=== PATIENT | female | born 1990 | race American Indian/Alaskan Native ===

== ENCOUNTER 2018-11-02 18:04 | Inpatient (IN) | payer MEDICAID ==
[2018-11-02 20:44] LABS: Basophils # (Auto) 0.1 K/mm3 (0.0-0.1); Basophils % (Auto) 0.7 % (0.0-1.8); Eosinophils # (Auto) 0.2 K/mm3 (0.0-0.4); Hematocrit 28.7 % (30.3-42.9); Hemoglobin 9.7 gm/dl (10.1-14.3); Lymphocytes # (Auto) 2.1 K/mm3 (1.2-5.4); Lymphocytes % (Auto) 26.7 % (13.4-35.0); Mean Corpuscular HGB Conc 34 % (30-34); Mean Corpuscular Volume 99 fl (79-97); Monocytes # (Auto) 0.4 K/mm3 (0.0-0.8); Monocytes % (Auto) 5.6 % (0.0-7.3); Platelet Count 158 K/mm3 (140-440); Red Blood Count 2.92 M/mm3 (3.65-5.03); Red Cell Distribution Width 13.1 % (13.2-15.2)
[2018-11-02] MEDS ORDERED: LACTATED RINGERS 1,000 ML IV ONE (20:45)
--- NOTE | 2018-11-02 20:53 | Ultrasound Report ---
US renal RT INDICATION / CLINICAL INFORMATION: kidney stone. COMPARISON: None available. FINDINGS: Left kidney and urinary bladder are unremarkable. Right kidney is hydronephrotic, with a large (1.6 c m) calculus in the renal pelvis near the ureteropelvic junction. Right renal cortex appears very slig htly thinned. IMPRESSION: 1. 1.6 cm calculus in the right renal pelvis near the ureteropelvic junction. Marked hydronephrosis a nd slight cortical thinning suggest long-standing obstruction. Signer Name: Joseph Ewing MD Signed: 11/02/2018 8:49 PM Workstation Name: [id number]
[2018-11-02 21:07] LABS: Bilirubin,Urine NEG (Negative); Blood,Urine LG (Negative); Color,Urine Amber (Yellow); Mucus,Urine 2+ /HPF; RBC,Urine > 182.0 /HPF (0.0-6.0)
[2018-11-02 21:12] LABS: Albumin 3.1 g/dL (3.9-5); BUN/Creatinine Ratio 14; Blood Urea Nitrogen 7 mg/dL (7-17); Calcium 8.7 mg/dL (8.4-10.2); Hemolysis Index 7
[2018-11-02 21:20] LABS: Alanine Aminotransferase < 5 units/L (7-56)
--- NOTE | 2018-11-02 22:18 | History and Physical Report ---
History of Present Illness Date of examination: 11/02/18 Chief complaint: Right flank pain History of present illness: Pt is a 28yo BF EDC 11/24/18; EGA 36 6/7 weeks presents to [facility] complaining of right flank pain. She had a pelvic u/s @ [facility] showing right kidney with a large hydronephrosis and a small stone in the pelvis. She received care at [facility] and had 3 previous C Sections. records are not available and GBS is unknown. Past History Past Medical History: no pertinent history Past Surgical History: section Family/Genetic History: none Social history: no significant social history, single - Obstetrical History Expected Date of Delivery: 11/24/18 Actual Gestation: 37 Week(s) 0 Day(s) : 5 Medications and Allergies Allergies Allergy/AdvReac Type Severity Reaction Status Date / Time No Known Allergies Allergy Verified 11/02/18 19:42 Home Medications Medication Instructions Recorded Confirmed Last Taken Type Vit Calc,Iron,Folic 1 each PO QDAY 09/23/16 11/02/18 09/22/16 19:00 History [ Vitamins] 1 Review of Systems All systems: negative - Vital Signs Vital signs: Vital Signs Pulse BP 83 112/69 11/02/18 18:24 11/02/18 18:24 Temp Pulse Resp BP Pulse Ox 97.9 F 75 14 97/59 99 11/02/18 21:54 11/02/18 21:58 11/02/18 21:54 11/02/18 21:58 11/02/18 21:54 - Physical Exam Breasts: Positive: deferred Cardiovascular: Regular rate Lungs: Positive: Clear to auscultation Abdomen: Positive: tenderness (Right CVAT) Genitourinary (Female): Positive: normal external genitalia Uterus: Positive: enlarged Extremities: Positive: normal - Obstetrical FHR: category 1 Uterine Contraction Monitor Mode: External Uterine Contraction Pattern: Absent Results Result Diagrams: 11/02/18 20:25 11/02/18 20:25 Abnormal lab results 11/02/18 11/02/18 11/02/18 Range/Units 20:25 20:25 Unknown RBC 2.92 L (3.65-5.03) M/mm3 Hgb 9.7 L (10.1-14.3) gm/dl Hct 28.7 L (30.3-42.9) % MCV 99 H (79-97) fl MCH 33 H (28-32) pg RDW 13.1 L (13.2-15.2) % Sodium 135 L (137-145) mmol/L Creatinine 0.5 L (0.7-1.2) mg/dL ALT < 5 L (7-56) units/L Albumin 3.1 L (3.9-5) g/dL Urine WBC (Auto) 61.0 H (0.0-6.0) /HPF U Epithel Cells (Auto) 20.0 H (0-13.0) /HPF All other labs normal. Ultrasound: report reviewed Assessment and Plan - Patient Problems (1) 36 weeks gestation of Onset Date: 11/02/18 Current Visit: Yes Status: Acute Plan to address problem: A: IUP @ 36 6/7 weeks Previous C Section x 3 Right hydronephrosis P: Admit to L&D for Observation Obtain Urology consultation (2) Previous section Onset Date: 11/02/18 Current Visit: Yes Status: Chronic (3) Hydronephrosis concurrent with and due to calculi of kidney and ureter Onset Date: 11/02/18 Current Visit: Yes Status: Acute
[2018-11-02] MEDS: PERCOCET 5/325 PO PRN (22:20)
[2018-11-02] MEDS ORDERED: COLACE PO PRN (22:21)
[2018-11-02] MEDS ORDERED: ZOFRAN IV PRN (22:21)
[2018-11-02] MEDS ORDERED: MORPHINE IV PRN (22:21)
[2018-11-02] MEDS ORDERED: TYLENOL PO PRN (22:21)
[2018-11-02] MEDS ORDERED: AMBIEN PO PRN (22:21)
--- NOTE | 2018-11-03 10:38 | Consultation ---
History of Present Illness - Reason for Consult Consult date: 11/03/18 right hydronephrosis with obstructing stone - History of Present Illness Patient with a history of right hydronephrosis with obstructing stone who is 36 and 6/7 weeks . Patient does not have a history of stone. She does complain of right flank pain. Past History Social history: no significant social history, single Medications and Allergies Allergies Allergy/AdvReac Type Severity Reaction Status Date / Time No Known Allergies Allergy Verified 11/02/18 19:42 Home Medications Medication Instructions Recorded Confirmed Last Taken Type Vit Calc,Iron,Folic 1 each PO QDAY 09/23/16 11/02/18 09/22/16 19:00 History [ Vitamins] 1 Active Meds: Active Medications Acetaminophen (Tylenol) 650 mg PO Q4H PRN PRN Reason: Pain MILD(1-3)/Fever >100.5/PRUITT Docusate Sodium (Colace) 100 mg PO Q12H PRN PRN Reason: Constipation Lactated Ringer's (Lactated Ringers) 1,000 mls @ 150 mls/hr IV DIRECT [facility] Morphine Sulfate (Morphine) 4 mg IV Q4H PRN PRN Reason: Pain , Severe (7-10) Multivitamins/Iron/Calcium ( Vitamin) 1 each PO QDAY [facility] Ondansetron HCl (Zofran) 4 mg IV Q6H PRN PRN Reason: Nausea And Vomiting Oxycodone/Acetaminophen (Percocet 5/325) 2 tab PO Q6H PRN PRN Reason: Pain, Moderate (4-6) Last Admin: 11/02/18 22:20 Dose: 2 tab Documented by: Zolpidem Tartrate (Ambien) 10 mg PO ONCE PRN PRN Reason: Sleep Review of Systems All systems: negative Exam - Constitutional Vitals: Temp Pulse Resp BP Pulse Ox 97.0 F L 70 17 111/76 99 11/03/18 10:36 11/03/18 10:35 11/03/18 10:36 11/03/18 10:35 11/02/18 21:54 General appearance: Present: no acute distress - EENT Eyes: Present: PERRL, EOM intact ENT: hearing intact - Neck Neck: Present: supple, normal ROM - Respiratory Respiratory effort: normal - Extremities Extremities: Full ROM - Abdominal General gastrointestinal: Present: deferred Female genitourinary: Present: deferred - Rectal Rectal Exam: deferred - Psychiatric Psychiatric: appropriate mood/affect, cooperative - Neurologic Neurologic: no focal deficits Results - Labs CBC & Chem 7: 11/02/18 20:25 11/02/18 20:25 Labs: Abnormal lab results 11/02/18 11/02/18 11/02/18 Range/Units 20:25 20:25 Unknown RBC 2.92 L (3.65-5.03) M/mm3 Hgb 9.7 L (10.1-14.3) gm/dl Hct 28.7 L (30.3-42.9) % MCV 99 H (79-97) fl MCH 33 H (28-32) pg RDW 13.1 L (13.2-15.2) % Sodium 135 L (137-145) mmol/L Creatinine 0.5 L (0.7-1.2) mg/dL ALT < 5 L (7-56) units/L Albumin 3.1 L (3.9-5) g/dL Urine WBC (Auto) 61.0 H (0.0-6.0) /HPF U Epithel Cells (Auto) 20.0 H (0-13.0) /HPF - Imaging and Cardiology Venous US: image reviewed (renal ultrasound) Assessment and Plan We'll plan on placing right nephrostomy tube with anesthesia given patient's status. This will both allow the kidney to decompress and provide access for laser lithotripsy after delivery.
[2018-11-03] MEDS: LACTATED RINGERS 1,000 ML IV SCH ×2 (10:46→22:47)
[2018-11-03] MEDS ORDERED: NACL 0.9% 500 ML 0 ML ONE (11:02)
[2018-11-03] MEDS ORDERED: XYLOCAINE 2% INFILTRATI ONE ×2 (11:02→13:42)
[2018-11-03] MEDS ORDERED: NACL 0.9% 500 ML IR ONE (11:02)
--- NOTE | 2018-11-03 11:23 | Anesthesia Consultation ---
Anesthesia Consult and Med Hx Date of service: 11/03/18 - Airway Anesthetic Teeth Evaluation: Poor ROM Head & Neck: Adequate Mental/Hyoid Distance: Adequate Mallampati Class: Class II Intubation Access Assessment: Possibly Difficult - Pulmonary Exam CTA: Yes - Cardiac Exam Cardiac Exam: RRR - Pre-Operative Health Status ASA Pre-Surgery Classification: ASA2 Proposed Anesthetic Plan: General - Pulmonary Hx Smoking: Yes Hx Asthma: Yes (last inhaler use 1 month ago) Hx Respiratory Symptoms: No - Cardiovascular System Hx Hypertension: No Hx Heart Attack/AMI: No Hx Cardia Arrhythmia: No - Central Nervous System Hx Seizures: No CVA: No - Gastrointestinal Hx Gastroesophageal Reflux Disease: No - Endocrine Hx Renal Disease: Yes (obstructing renal stone) Hx End Stage Renal Disease: No Hx Liver Disease: No Hx Insulin Dependent Diabetes: No Hx Non-Insulin Dependent Diabetes: No Hx Thyroid Disease: No - Hematic Hx Anemia: Yes - Other Systems Hx Obesity: No - Additional Comments Anesthesia Medical History Comments: No hx anesthetic complications. Will obtain FHTs pre- and post-procedure. Per discussion with OB, intraop FHT monitoring not required as length of precedure estimated to be 30mins or less.
--- NOTE | 2018-11-03 11:24 | Anesthesia Day of Surgery ---
Anesthesia Day of Surgery - Day of Surgery Patient Examined: Yes Patient H&P Reviewed: Yes Patient is NPO: Yes (last meal (eggs only) 729.)
[2018-11-03] MEDS ORDERED: DIPRIVAN 10 MG/ML IV ONE (12:06)
[2018-11-03] MEDS ORDERED: XYLOCAINE CARDIAC IV ONE (12:06)
[2018-11-03] MEDS ORDERED: ZEMURON IV ONE (12:06)
[2018-11-03] MEDS ORDERED: QUELICIN ONE (12:06)
[2018-11-03] MEDS ORDERED: SUBLIMAZE ONE (12:08)
[2018-11-03] MEDS ORDERED: NEO SYNEPHRINE ONE (12:14)
[2018-11-03] MEDS ORDERED: DIPRIVAN 10 MG/ML 1,000 MG/100 ML BOTTLE IV ONE (12:24)
[2018-11-03] MEDS ORDERED: HEPARIN/NS 5000 UNIT/500ML(CATH LAB) 500 ML IR ONE (13:42)
[2018-11-03] MEDS ORDERED: NACL 0.9% 1000 ML 1,000 ML ONE (14:22)
[2018-11-03] MEDS ORDERED: BRIDION IV ONE (14:58)
--- NOTE | 2018-11-03 14:59 | Operative Report ---
Operative Report Operative Report: Exam: Ultrasound and fluoroscopic guided placement of nephrostomy tube Clinical indication: Patient with a history of right hydronephrosis secondary to obstructing stone. Patient is 36 and 6/7 weeks . Date: 11/03/2018 Procedure: Following an excellent mention of the risks, benefits and alternative s; written informed consent was obtained. The patient's ultrasound was reviewed prior to the procedure. The patient was brought to the antibiotics suite and placed in oblique position. Following the induction of anesthesia with anesthesia services, the patient's back and flank were prepped and draped in the usual sterile fashion. 1% lidocaine was used for anesthesia. Under ultrasound guidance, a posterior calyx was cannulated using a 15 cm 21- gauge needle. A 0.018 guidewire was advanced centrally. The needle was removed and the inner portion of the transition dilator placed over the guidewire. Contrast was injected which demonstrated opacification of the renal pelvis and extrarenal pelvis with transit of contrast in the proximal ureter. A 0.014 guidewire was then advanced through the inner portion of the transition dilator to the level of the bladder. The transition dilator was removed and a vertebral catheter advanced over the guidewire however, would not track into the kidney. The vertebral catheter was removed and the entire transition dilator placed over the guidewire and advanced centrally. The guidewire and trocar were removed. A 0.035 guidewire was then advanced through the transition dilator into the tortuous proximal ureter the level of the bladder. Transition dilator was removed. The vertebral catheter was then advanced into the bladder and contrast injected. There is poor visualization secondary to let shielding. The vertebral catheter was withdrawn proximally and imaging obtained of the distal mid and proximal ureters which demonstrated appropriate positioning within the urinary collecting system. The 0.035 guidewire was then advanced again toward the vertebral catheter into the proximal ureter. The vertebral catheter removed. Following serial dilation over the guidewire under fluoroscopy, an 8 [place] pigtail catheter was advanced over the guidewire under fluoroscopy centrally. The catheter was positioned to position the pigtail within the central aspect of the renal pelvis. There is prompt return of serosanguineous fluid. Contrast was injected to document appropriate positioning. The catheter was securely fastened at the skin surface using 2-0 Ethilon suture in a StayFix device placed. The catheter was then placed to dependent drainage. Sterile dressings were then applied. Patient tolerated the procedure well. There were no immediate post procedure competitions. Sedation was provided by anesthesia services. Continuous cardiopulmonary monitoring was utilized. Impression: Ultrasound and fluoroscopic guided placement of right 8 [place] Nephrostomy tube.
[2018-11-03] MEDS ORDERED: KETAMINE 50 MG/ML-WATER SYRING ONE (15:08)
[2018-11-03] MEDS ORDERED: PROVENTIL IH ONE (15:14)
[2018-11-03] MEDS ORDERED: REGLAN ONE (15:23)
--- NOTE | 2018-11-03 15:59 | XRay Report ---
CHEST 1 VIEW INDICATION: respitory difficulty. COMPARISON: None FINDINGS: Support devices: None. Heart: Within normal limits. Lungs/Pleura: No acute air space or interstitial disease. Additional findings: None. IMPRESSION: No acute findings. Signer Name: Mohamud Peters Jr, MD Signed: 11/03/2018 3:54 PM Workstation Name: [id number]
--- NOTE | 2018-11-03 16:02 | Event Note ---
Date: 11/03/18 Following the cessation of anesthesia, the patient sat upright and complained of shortness of breath. Her lung sounds are clear bilaterally. She satted between 96 and 100% on room air. A stat postprocedure chest x-ray was ordered an upright position and demonstrates that the lungs are clear and well-expanded with no pleural fluid and no evidence of pneumothorax. The nephrostomy tube is well below the diaphragm. The patient has a reported history of substance abuse and this may simply be a reaction to anesthesia. In PACU, the patient calmed down and was breathing comfortably on room air.
--- NOTE | 2018-11-03 16:39 | Post Anesthesia Evaluation ---
- Post Anesthesia Evaluation Patient Participated: Yes Airway Patent: Yes Stable Respiratory Function: Yes Nausea/Vomiting: Yes (resolved with IV antiemetics) Temp > 96.8F: Yes Pain Manageable: Yes Adequeate Hydration: Yes Anesthesia Complications: No Other Comments: Immediately post-extubation, patient complained of difficulty breathing. Lungs clear, SpO2 >96% on room air, no evidence of residual muscle relaxant. Stat CXR in PACU was normal. Patient was extremely anxious and intermittently combative despite reassurance. Patient was given albuterol neb, antiemetics, and low dose ketamine IV. VS remained stable. At time fo transport to L&D, patient was resting calmly, normal WOB on RA, without signs of nausea. Post-procedure FHTs 140s.
[2018-11-03] MEDS: PERCOCET 5/325 PO PRN (17:59)
[2018-11-03] MEDS: PRENATAL VITAMIN PO SCH (18:00)
--- NOTE | 2018-11-03 18:02 | Consultation ---
History of Present Illness - Reason for Consult Consult date: 11/03/18 - History of Present Illness new to our service Pt is a 28yo BF EDC 11/24/18; EGA 36 6/7 weeks presents to [facility] complaining of right flank pain. She had a pelvic u/s @ [facility] showing right kidney with a large hydronephrosis and a small stone in the pelvis. She received care at [facility] and had 3 previous C Sections. SERGEI---16MM RT KIDNEY STONE WITH HYDRONEPHROSIS S/P---RT PERC ONLY (DR. WEEKS - ---TODAY) RESTING PERC TUBE--BLOODY URINE A/P STABLE HOME WITH PERC WHEN STABLE PT TO F/U 2-3 WKS AFTER DELIVERY FOR CTAP & STONE TREATMENT PLANNING Past History Social history: no significant social history, single Medications and Allergies Allergies Allergy/AdvReac Type Severity Reaction Status Date / Time No Known Allergies Allergy Verified 11/02/18 19:42 Home Medications Medication Instructions Recorded Confirmed Last Taken Type Vit Calc,Iron,Folic 1 each PO QDAY 09/23/16 11/02/18 09/22/16 19:00 History [ Vitamins] 1 Active Meds: Active Medications Acetaminophen (Tylenol) 650 mg PO Q4H PRN PRN Reason: Pain MILD(1-3)/Fever >100.5/PRUITT Docusate Sodium (Colace) 100 mg PO Q12H PRN PRN Reason: Constipation Lactated Ringer's (Lactated Ringers) 1,000 mls @ 150 mls/hr IV DIRECT [facility] Last Admin: 11/03/18 10:46 Dose: 150 mls/hr Documented by: Morphine Sulfate (Morphine) 4 mg IV Q4H PRN PRN Reason: Pain , Severe (7-10) Multivitamins/Iron/Calcium ( Vitamin) 1 each PO QDAY [facility] Last Admin: 11/03/18 18:00 Dose: Not Given Documented by: Ondansetron HCl (Zofran) 4 mg IV Q6H PRN PRN Reason: Nausea And Vomiting Oxycodone/Acetaminophen (Percocet 5/325) 2 tab PO Q6H PRN PRN Reason: Pain, Moderate (4-6) Last Admin: 11/03/18 17:59 Dose: 2 tab Documented by: Zolpidem Tartrate (Ambien) 10 mg PO ONCE PRN PRN Reason: Sleep Exam - Constitutional Vitals: Temp Pulse Resp BP Pulse Ox 97.6 F 102 H 16 112/65 100 11/03/18 16:55 11/03/18 17:30 11/03/18 16:55 11/03/18 16:55 11/03/18 17:30 Results - Labs CBC & Chem 7: 11/02/18 20:25 11/02/18 20:25 Labs: Abnormal lab results 11/02/18 11/02/18 11/02/18 Range/Units 20:25 20:25 Unknown RBC 2.92 L (3.65-5.03) M/mm3 Hgb 9.7 L (10.1-14.3) gm/dl Hct 28.7 L (30.3-42.9) % MCV 99 H (79-97) fl MCH 33 H (28-32) pg RDW 13.1 L (13.2-15.2) % Sodium 135 L (137-145) mmol/L Creatinine 0.5 L (0.7-1.2) mg/dL ALT < 5 L (7-56) units/L Albumin 3.1 L (3.9-5) g/dL Urine WBC (Auto) 61.0 H (0.0-6.0) /HPF U Epithel Cells (Auto) 20.0 H (0-13.0) /HPF
[2018-11-04] MEDS: PERCOCET 5/325 PO PRN ×2 (02:36→07:57)
[2018-11-04] MEDS: LACTATED RINGERS 1,000 ML IV SCH (07:58)
--- NOTE | 2018-11-04 10:13 | Progress Note ---
Assessment and Plan - Patient Problems (1) 36 weeks gestation of Onset Date: 11/02/18 Current Visit: Yes Status: Acute Plan to address problem: A: IUP @ 37 0/7 weeks Previous C Section x 3 Right hydronephrosis - resolved with nephrostomy tube P: May go home today. (2) Previous section Onset Date: 11/02/18 Current Visit: Yes Status: Chronic (3) Hydronephrosis concurrent with and due to calculi of kidney and ureter Onset Date: 11/02/18 Current Visit: Yes Status: Acute Subjective - Subjective Date of service: 11/04/18 Principal diagnosis: IUP @ 37 0/7 weeks; Right [place] with stone; Previous C Section x 3 Interval history: Pt is a 28yo BF EDC 11/24/18; EGA 37 0/7 weeks presented to [facility] complaining of right flank pain. She had a pelvic u/s @ [facility] showing right kidney with a large hydronephrosis and a small stone in the pelvis. She received care at [facility] and had 3 previous C Sections. She underwent a Right nephrostomy and is doing well. She denies contractions, ROM or bleeding, and wants to go home. Patient reports: movement normal, no new complaints, no loss of fluid, no vaginal bleeding, no contractions Objective - Vital Signs Vital Signs: Vital Signs - 12hr 11/03/18 11/04/18 11/04/18 22:56 02:36 02:46 Temperature 98.0 F Pulse Rate 72 70 Respiratory 16 16 Rate Blood Pressure 110/70 113/74 Blood Pressure 113/74 [Left] O2 Sat by Pulse Oximetry 11/04/18 11/04/18 11/04/18 07:34 07:37 07:42 Temperature 97.8 F Pulse Rate 71 59 L Respiratory 20 Rate Blood Pressure 119/71 Blood Pressure [Left] O2 Sat by Pulse 100 100 Oximetry 11/04/18 11/04/18 11/04/18 07:47 07:52 07:54 Temperature Pulse Rate 62 65 63 Respiratory Rate Blood Pressure Blood Pressure [Left] O2 Sat by Pulse 100 100 90 Oximetry 11/04/18 11/04/18 11/04/18 07:57 08:02 08:07 Temperature Pulse Rate 63 65 68 Respiratory Rate Blood Pressure Blood Pressure [Left] O2 Sat by Pulse 98 100 100 Oximetry 11/04/18 11/04/18 08:12 08:17 Temperature Pulse Rate 77 94 H Respiratory Rate Blood Pressure Blood Pressure [Left] O2 Sat by Pulse 99 98 Oximetry - Exam Abdomen: Present: normal appearance, soft Uterus: Present: normal FHR: category 1 Uterine Contraction Monitor Mode: External Uterine Contraction Pattern: Absent - Labs Labs: Abnormal Labs 11/02/18 11/02/18 11/02/18 20:25 20:25 Unknown RBC 2.92 L Hgb 9.7 L Hct 28.7 L MCV 99 H MCH 33 H RDW 13.1 L Sodium 135 L Creatinine 0.5 L ALT < 5 L Albumin 3.1 L Urine WBC (Auto) 61.0 H U Epithel Cells (Auto) 20.0 H
[2018-11-04 10:21] LABS: Basophils % (Auto) 0.2 % (0.0-1.8); Eosinophils % (Auto) 0.3 % (0.0-4.3); Hematocrit 27.2 % (30.3-42.9); Hemoglobin 9.4 gm/dl (10.1-14.3); Lymphocytes # (Auto) 1.6 K/mm3 (1.2-5.4); Lymphocytes % (Auto) 21.3 % (13.4-35.0); Mean Corpuscular HGB Conc 34 % (30-34); Mean Corpuscular Volume 98 fl (79-97); Monocytes # (Auto) 0.6 K/mm3 (0.0-0.8); Monocytes % (Auto) 7.3 % (0.0-7.3); Platelet Count 140 K/mm3 (140-440); Red Blood Count 2.78 M/mm3 (3.65-5.03); Red Cell Distribution Width 13.3 % (13.2-15.2)
[2018-11-04] MEDS: PRENATAL VITAMIN PO SCH (10:45)
[2018-11-04 10:50] VITALS: BP 117/69
[2018-11-04 10:59] LABS: BUN/Creatinine Ratio 12; Blood Urea Nitrogen 6 mg/dL (7-17); Calcium 8.5 mg/dL (8.4-10.2); Hemolysis Index 0
--- NOTE | 2018-11-04 11:09 | Discharge Summary ---
Providers - Providers Date of Admission: 11/03/18 00:31 Date of discharge: 11/04/18 Attending physician: AYESHA RASHEED 11/02/18 22:21 Consult to Physician [CONS] Routine Comment: Consulting Provider: CECI FLOREZ Physician Instructions: Reason For Exam: Right hydronephrosis Primary care physician: AYESHA RASHEED Hospitalization Reason for admission: IUP - (IUP @ 36 6/7 weeks; Previous C Section x 3; Right hydronephrosis with kidney stone) Laceration: none Incision: normal Other procedures: none complications: none Discharge diagnosis: other (IUP @ 37 0/7 weeks; Previous C Section x 3; Right hy dronephrosis with kidney stone) Pertinent studies: Ultrasound and fluoroscopic guided placement of nephrostomy tube Hospital course: Pt is a 28yo BF EDC 11/24/18; EGA 37 0/7 weeks presented to [facility] complaining of right flank pain. She had a pelvic u/s @ [facility] showing right kidney with a large hydronephrosis and a small stone in the pelvis. She received care at [facility] and had 3 previous C Sections. She underwent a Right nephrostomy and postoperative course was unremarkable. By POD #1 she was doing well without complaints, and therefore was discharged to home in stable condition. Condition at discharge: Good Disposition: DC-01 TO HOME OR SELFCARE - Discharge Diagnoses (1) 36 weeks gestation of Status: Acute (2) Previous section Status: Chronic (3) Hydronephrosis concurrent with and due to calculi of kidney and ureter Status: Acute Plan - Discharge Medications Prescriptions: oxyCODONE /ACETAMINOPHEN [Percocet 5/325 mg] 1 tab PO Q6H PRN #30 tablet PRN Reason: Pain, Moderate (4-6) - Provider Discharge Summary Activity: routine, no sex for 6 weeks, no heavy lifting 4 weeks, no strenuous exercise Diet: routine Instructions: routine Additional instructions: [] Smoking cessation referral if applicable(refer to patient education folder for contact #) [] Refer to [employer] [facility] Booklet Call your doctor immediately for: * Fever > 100.5 * Heavy vaginal bleeding ( >1 pad per hour) * Severe persistent headache * Shortness of breath * Reddened, hot, painful area to leg or breast * Drainage or odor from incision. * Keep incision clean and dry at all times and follow doctor's instructions regarding bathing/showering - Follow up plan Follow up: AYESHA RASHEED MD [Primary Care Provider] - 3 Days
--- NOTE | 2018-11-04 12:23 | Progress Note ---
Assessment and Plan 28-year-old female with left-sided hydronephrosis and renal calculi status post nephrostomy tube placement. Urine clearing. Follow-up with urology. Patient was told to contact us if she needs to for further assistance. She was told she should have the tube changed every 10 weeks or she will at risk for future calculi. Subjective Date of service: 11/04/18 Principal diagnosis: IUP @ 37 0/7 weeks; Right [place] with stone; Previous C Section x 3 Interval history: Right flank pain improved. [place] urine. Clearing. No significant discomfort. Objective - Constitutional Vitals: Vital Signs - 12hr 11/04/18 11/04/18 11/04/18 02:36 02:46 07:34 Temperature 98.0 F 97.8 F Pulse Rate 70 Respiratory 16 16 20 Rate Blood Pressure 113/74 Blood Pressure 113/74 [Left] O2 Sat by Pulse Oximetry 11/04/18 11/04/18 11/04/18 07:37 07:42 07:47 Temperature Pulse Rate 71 59 L 62 Respiratory Rate Blood Pressure 119/71 Blood Pressure [Left] O2 Sat by Pulse 100 100 100 Oximetry 11/04/18 11/04/18 11/04/18 07:52 07:54 07:57 Temperature Pulse Rate 65 63 63 Respiratory Rate Blood Pressure Blood Pressure [Left] O2 Sat by Pulse 100 90 98 Oximetry 11/04/18 11/04/18 11/04/18 08:02 08:07 08:12 Temperature Pulse Rate 65 68 77 Respiratory Rate Blood Pressure Blood Pressure [Left] O2 Sat by Pulse 100 100 99 Oximetry 11/04/18 11/04/18 11/04/18 08:17 10:47 10:49 Temperature 98.0 F Pulse Rate 94 H 79 Respiratory 16 Rate Blood Pressure 117/69 Blood Pressure [Left] O2 Sat by Pulse 98 Oximetry General appearance: Present: no acute distress - EENT Eyes: EOM intact ENT: hearing intact - Respiratory Respiratory effort: normal - Gastrointestinal General gastrointestinal: Present: soft, non-tender, other (no costovertebral tenderness) - Psychiatric Psychiatric: appropriate mood/affect, cooperative - Labs CBC & Chem 7: 11/04/18 09:41 11/04/18 09:41 Labs: Abnormal lab results 11/04/18 11/04/18 Range/Units 09:41 09:41 RBC 2.78 L (3.65-5.03) M/mm3 Hgb 9.4 L (10.1-14.3) gm/dl Hct 27.2 L (30.3-42.9) % MCV 98 H (79-97) fl MCH 34 H (28-32) pg Seg Neutrophils % 70.9 H (40.0-70.0) % Sodium 135 L (137-145) mmol/L BUN 6 L (7-17) mg/dL Creatinine 0.5 L (0.7-1.2) mg/dL Glucose 104 H (65-100) mg/dL Medications & Allergies - Medications Allergies/Adverse Reactions: Allergies No Known Allergies Allergy (Verified 11/02/18 19:42) Home Medications: Home Medications Medication Instructions Recorded Confirmed Last Taken Type Vit Calc,Iron,Folic 1 each PO QDAY 09/23/16 11/02/18 09/22/16 19:00 History [ Vitamins] 1 oxyCODONE /ACETAMINOPHEN [Percocet 1 tab PO Q6H PRN #30 tablet 11/04/18 Unknown Rx 5/325 mg]
== END 2018-11-04 12:00 | disposition home or self-care (01) | DRG 781 ==
LOC: TRG 18:04 → LD 11-03 00:31
PROVIDERS: ADMIT Obstetrics & Gynecology; ATTEND Obstetrics & Gynecology
PROC: 0T9330Z Drainage of Right Kidney Pelvis with Drainage Device, Percutaneous Approach (ICD-10-PCS; principal; 2018-11-03)
PROC: BT111ZZ Fluoroscopy of Right Kidney using Low Osmolar Contrast (ICD-10-PCS; 2018-11-03)
DX: O99.89 Other specified diseases and conditions complicating pregnancy, childbirth and the puerperium (principal); N13.2 Hydronephrosis with renal and ureteral calculous obstruction; Z3A.36 36 weeks gestation of pregnancy; O99.333 Smoking (tobacco) complicating pregnancy, third trimester; F17.200 Nicotine dependence, unspecified, uncomplicated; O99.513 Diseases of the respiratory system complicating pregnancy, third trimester; J45.909 Unspecified asthma, uncomplicated
CPT/HCPCS: 36415; 50432; 71045; 76770; 76775; 76937; 80048; 80053; 81001; 82962; 85025; 87086; G0378; C1729; C1769; J0330; J1644; J2001; J2270; J2370; J2405; J2704; J2765; J3010; J7030; J7040; J7120; Q9967

== ENCOUNTER 2019-03-08 09:54 | Day surgery (SDC) | payer MEDICARE ==
[2019-03-08 10:43] LABS: Hematocrit 31.3 % (30.3-42.9); Hemoglobin 10.7 gm/dl (10.1-14.3); Mean Corpuscular HGB Conc 34 % (30-34); Mean Corpuscular Volume 93 fl (79-97); Platelet Count 271 K/mm3 (140-440); Red Blood Count 3.35 M/mm3 (3.65-5.03); Red Cell Distribution Width 14.5 % (13.2-15.2)
[2019-03-08] MEDS: SODIUM CHLORIDE 0.9% 500 ML 500 ML IV SCH ×2 (10:51→11:58)
[2019-03-08 10:52] LABS: INR 0.96 (0.87-1.13)
[2019-03-08 10:56] LABS: BUN/Creatinine Ratio 13; Blood Urea Nitrogen 9 mg/dL (7-17); Calcium 9.1 mg/dL (8.4-10.2); Hemolysis Index 9
[2019-03-08] MEDS ORDERED: SODIUM CHLORIDE IRRI 500 ML 500 ML IR ONE (10:56)
[2019-03-08] MEDS ORDERED: ceFAZolin/Water 2 GM/20 ML 0 GM/0 ML SYRINGE IV ONE (10:57)
[2019-03-08] MEDS ORDERED: SODIUM CHLORIDE 0.9% 250ML 0 ML ONE (10:57)
--- NOTE | 2019-03-08 11:16 | Short Stay Summary ---
Short Stay Documentation Date of service: 03/08/19 - History Principal diagnosis: right hydronephrosis resolved, nephrostomy tube no longer needed Past Medical History: other (right hydronephrosis secondary to and right nephrolithiasis) Past Surgical History: Other (right nephrostomy tube placement) Social history: no significant social history - Allergies and Medications Current Medications: Allergies No Known Allergies Allergy (Verified 11/02/18 19:42) Home Medications Medication Instructions Recorded Confirmed Last Taken Type No Known Home Medications [No 03/08/19 03/08/19 Unknown History Reported Home Medications] Active Medications Sodium Chloride (Nacl 0.9% 500 Ml) 500 mls @ 50 mls/hr IV DIRECT FELIPE Last Admin: 03/08/19 10:51 Dose: 50 mls/hr Documented by: - Physical exam General appearance: no acute distress Integumentary: no rash, no growths HEENT: Atraumatic Lungs: Normal air movement Breasts: deferred Heart: Regular rate Gastrointestinal: normal Female Genitourinary: deferred Rectal Exam: deferred Extremities: no ischemia Neurological: Normal gait, Normal speech - Brief post op/procedure progress note Date of procedure: 03/08/19 Pre-op diagnosis: right nephrolithiasis Post-op diagnosis: same Procedure: right nephrostogram, neph tube removal Anesthesia: local Surgeon: PABLO WEEKS Estimated blood loss: minimal Pathology: none Condition: stable - Disposition Condition at discharge: Good Disposition: DC-01 TO HOME OR SELFCARE Short Stay Discharge Plan Activity: advance as tolerated Weight Bearing Status: Weight Bear as Tolerated Diet: regular Wound: keep clean and dry, per your surgeon's advice Follow up with: PRIMARY CAREMD [Primary Care Provider] - 7 Days
[2019-03-08] MEDS: fentaNYL 100 MCG/2 ML INJ ONE ×2 (11:57→11:59)
[2019-03-08] MEDS: LIDOCAINE 1%/EPINEPHRINE 1:100,000 VIAL (20 ML) INFILTRATI ONE ×2 (11:58→12:03)
[2019-03-08] MEDS: MIDAZOLAM 2 MG/2 ML INJ ONE ×2 (11:58→11:59)
--- NOTE | 2019-03-08 12:12 | Operative Report ---
Operative Report Operative Report: Exam: Nephrostogram through indwelling nephrostomy tube, fluoroscopic guided removal of nephrostomy tube Clinical indication: Patient with a history of right nephrolithiasis and hydronephrosis now resolved, nephrostomy tube no longer needed Date: 03/08/2019 Procedure: Following an explanation of the risks, benefits and alternatives; written informed consent was obtained. The patient was brought into Suite and placed in prone position on the examination table. Initial fluoroscopic evaluation of the patient's right back demonstrated proper positioning of the patient's previously placed nephrostomy tube. Patient was prepped and draped in the usual sterile fashion. 1% lidocaine was used for anesthesia at the catheter exit site. Contrast was injected through the indwelling catheter which demonstrates prompt mastication of the renal pelvis. There is decompression of the renal pelvis and renal calyces. The catheter was cut to release the pigtail and under fluoroscopy, a 0.035 guidewire advanced through the catheter to straighten it out. The catheter was then removed intact. A sterile dressing was applied. The patient tolerated the procedure well. There were no immediate post procedure complications. A minimal amount of fentanyl was utilized for pain control. Continuous cardiopulmonary monitoring was utilized. Impression: 1) Nephrostogram through indwelling nephrostomy tube demonstrating decompression of the kidney with nonvisualization of previously identified kidney stone. 2) Fluoroscopic guided removal of nephrostomy tube
[2019-03-08] MEDS ORDERED: oxyCODONE /ACETAMINOPHEN 5-325MG TAB PO ONE (12:45)
[2019-03-08 13:29] VITALS: BP 116/72
== END 2019-03-08 13:56 | disposition home or self-care (01) ==
LOC: CATHLABREC 09:54
PROVIDERS: ATTEND Radiology Diagnostic Radiology
DX: N13.2 Hydronephrosis with renal and ureteral calculous obstruction (principal); J45.909 Unspecified asthma, uncomplicated; K21.9 Gastro-esophageal reflux disease without esophagitis; Z98.890 Other specified postprocedural states; F17.210 Nicotine dependence, cigarettes, uncomplicated; Z79.899 Other long term (current) drug therapy; Z98.891 History of uterine scar from previous surgery; Z72.89 Other problems related to lifestyle; Z83.3 Family history of diabetes mellitus; Z80.1 Family history of malignant neoplasm of trachea, bronchus and lung; Z82.5 Family history of asthma and other chronic lower respiratory diseases; Z86.2 Personal history of diseases of the blood and blood-forming organs and certain disorders involving the immune mechanism; Z82.49 Family history of ischemic heart disease and other diseases of the circulatory system
CPT/HCPCS: 36415; 50389; 80048; 85027; 85610; 85730; C1769; J2250; J3010; J7040; J0690; J7050; Q9967

== ENCOUNTER 2020-04-28 23:56 | Emergency (ER) | payer MEDICAID ==
[2020-04-29] MEDS ORDERED: IBUPROFEN 800 MG TAB PO ONE (00:13)
--- NOTE | 2020-04-29 00:16 | Emergency Department Report ---
ED General Adult HPI - General Chief complaint: Extremity Injury, Lower Stated complaint: LEFT SHOULDER/ARM/PELVIC PAIN Time Seen by Provider: 04/29/20 00:06 Source: patient Mode of arrival: Ambulatory Limitations: No Limitations - History of Present Illness Initial comments: 30 yr old female with pmhx asthma, GERD, and Kidney stone presents to ED with c /o pelvic pain and right shoulder pain. Patient states she accidentally fell 03/05/2020. She states she was walking when she stepped in a hole and fell on her buttocks. She states she was evaluated at the time of the fall at [facility] and was dx with pelvic fracture. She states she was given medication for pain in ER but states she was not given any prescriptions. She states she has an appointment with Dr Leti West at [facility] for next week but she states she is in a lot of pain. She states pain is worse when she walks, bends and moves her legs in certain positions. She states she has not been taking any otc meds for pain. She denies any new injuries since her initial accident. Patient also c/o right shoulder pain. She states she has had pain in right shoulder for a "long time" and she states every morning she feels like her shoulder is dislocated. She states in past month she feels like the dislocation is more frequent. She states she has never seen sales operations lead for her shoulder. She states it typically "relocates on it own. She has never had to come to ER to have it relocated. Complaint: Right Shoulder pain; Pelvic pain -: week(s) - Related Data Previous Rx's Medication Instructions Recorded Last Taken Type oxyCODONE /ACETAMINOPHEN [Percocet 1 tab PO Q6HR PRN #25 tablet 03/08/19 Unknown Rx 5/325] Ibuprofen [Motrin] 800 mg PO Q8HR PRN #30 tablet 04/29/20 Unknown Rx Allergies Allergy/AdvReac Type Severity Reaction Status Date / Time No Known Allergies Allergy Verified 11/02/18 19:42 ED Review of Systems ROS: Stated complaint: LEFT SHOULDER/ARM/PELVIC PAIN Other details as noted in HPI Comment: All other systems reviewed and negative Constitutional: no symptoms reported Eyes: denies: eye pain, eye discharge, vision change ENT: denies: ear pain, throat pain Respiratory: denies: cough, shortness of breath, wheezing Cardiovascular: denies: chest pain, palpitations Gastrointestinal: denies: abdominal pain, nausea, diarrhea Genitourinary: as per HPI Musculoskeletal: arthralgia, other (right shoulder pain; Pelvic pain ). denies: back pain, joint swelling Skin: denies: rash, lesions Neurological: denies: headache, weakness, paresthesias Psychiatric: denies: anxiety, depression Hematological/Lymphatic: denies: easy bleeding, easy bruising ED Past Medical Hx - Past Medical History Previous Medical History?: Yes Hx Hypertension: No Hx Heart Attack/AMI: No Hx Congestive Heart Failure: No Hx Diabetes: No Hx Deep Vein Thrombosis: No Hx GERD: Yes Hx Liver Disease: No Hx Renal Disease: Yes (obstructing renal stone) Hx Sickle Cell Disease: No Hx Seizures: No Hx Asthma: Yes (last inhaler use 1 month ago) Hx COPD: No Hx HIV: No - Surgical History Past Surgical History?: Yes Additional Surgical History: kidney stones - Social History Smoking Status: Current Every Day Smoker - Medications Home Medications: Home Medications Medication Instructions Recorded Confirmed Last Taken Type oxyCODONE /ACETAMINOPHEN [Percocet 1 tab PO Q6HR PRN #25 tablet 03/08/19 Unknown Rx 5/325] Ibuprofen [Motrin] 800 mg PO Q8HR PRN #30 tablet 04/29/20 Unknown Rx ED Physical Exam - General Limitations: No Limitations General appearance: alert, in no apparent distress - Head Head exam: Present: atraumatic, normocephalic, normal inspection - Eye Eye exam: Present: normal appearance, PERRL, EOMI Pupils: Present: normal accommodation - ENT ENT exam: Present: normal exam, mucous membranes moist - Respiratory Respiratory exam: Present: normal lung sounds bilaterally. Absent: respiratory distress - Cardiovascular Cardiovascular Exam: Present: regular rate, normal rhythm - GI/Abdominal GI/Abdominal exam: Present: soft. Absent: distended, tenderness - Extremities Exam Extremities exam: Present: other (Mod ttp left buttocks, mild ttp right buttocks; TTP groin area bilaterally, more so on left. ROM of both hip is mildly reduced and painful. No bruising, swelling or deformity noted. No instability noted. ) - Expanded Upper Extremity Exam Right Shoulder Exam: Present: normal inspection, full ROM, tenderness (proximal humerus, mild). Absent: swelling, abrasion, laceration, ecchymosis, deformity, crepidus, dislocation, erythema, tenderness over AC joint, other - Back Exam Back exam: Present: normal inspection, full ROM. Absent: paraspinal tenderness, vertebral tenderness - Neurological Exam Neurological exam: Present: alert, oriented X3, CN II-XII intact, normal gait - Psychiatric Psychiatric exam: Present: normal affect, normal mood - Skin Skin exam: Present: intact ED Course Vital Signs 04/29/20 00:03 Temperature 98.1 F Pulse Rate 80 Respiratory 16 Rate Blood Pressure 117/81 O2 Sat by Pulse 100 Oximetry ED Medical Decision Making - Radiology Data Radiology results: report reviewed - Medical Decision Making X-ray of the right shoulder and x-ray of the pelvis showed nothing acute. Discussed the results with patient. Recommend she keeps an appointment with her medical language specialist next week. Patient is well-appearing, not toxic and is not in any acute distress and neurologically intact with a normal gait in the ER. Vital signs are stable. No indication for any further work-up or imaging at this time. Patient expressed understanding of instructions and agree with plan. Patient was stable at time of discharge Critical care attestation.: If time is entered above; I have spent that time in minutes in the direct care of this critically ill patient, excluding procedure time. ED Disposition Clinical Impression: Pelvic injury, Chronic pain in right shoulder Disposition: - TO HOME OR SELFCARE Is pt being admited?: No Does the pt Need Aspirin: No Condition: Stable Instructions: Shoulder Pain, [id number], Joint Pain, [id number] Additional Instructions: Take the motrin as prescribed. Keep your appointment with the sales operations lead as scheduled. Return to ED if worse. Prescriptions: Ibuprofen [Motrin] 800 mg PO Q8HR PRN #30 tablet PRN Reason: pain Referrals: PRIMARY CARE, [Primary Care Provider] - 3-5 Days Time of Disposition: 01:07
--- NOTE | 2020-04-29 00:59 | XRay Report ---
XR pelvis 1-2V INDICATION: pelvic pain s/p fracture in 03/05/2020. COMPARISON: CT abdomen and pelvis on 11/23/2018. FINDINGS: There is no appreciable acute fracture or subluxation in the pelvis. Overall alignment is normal. Bon e mineralization is normal. Signer Name: Paramjit Wan MD Signed: 04/29/2020 12:54 AM Workstation Name: [id number]
--- NOTE | 2020-04-29 01:00 | XRay Report ---
RIGHT SHOULDER 4 VIEWS INDICATION / CLINICAL INFORMATION: shoulder pain/"poppingout of place". COMPARISON: None available. FINDINGS: BONES/JOINT(S): No acute fracture or subluxation. Overall alignment is normal. There are no focal bon e lesions. SOFT TISSUES: No significant abnormality. ADDITIONAL FINDINGS: None. Signer Name: Paramjit Wan MD Signed: 04/29/2020 12:55 AM Workstation Name: [id number]
[2020-04-29 02:04] VITALS: BP 120/86
== END 2020-04-29 02:05 | disposition home or self-care (01) ==
LOC: ED 23:56
DX: S39.93XA Unspecified injury of pelvis, initial encounter (principal); M25.511 Pain in right shoulder; G89.29 Other chronic pain; K21.9 Gastro-esophageal reflux disease without esophagitis; J45.909 Unspecified asthma, uncomplicated; F17.200 Nicotine dependence, unspecified, uncomplicated; Z98.890 Other specified postprocedural states; Z79.1 Long term (current) use of non-steroidal anti-inflammatories (NSAID); Z79.899 Other long term (current) drug therapy; W17.2XXA Fall into hole, initial encounter; Y93.89 Activity, other specified; Y92.89 Other specified places as the place of occurrence of the external cause; Y99.8 Other external cause status
CPT/HCPCS: 72170